=== PATIENT | male | born 1990 | race Caucasian/White ===

== ENCOUNTER 2019-01-29 13:04 | Outpatient (CLI) | payer SELFPAY ==
--- NOTE | 2019-01-29 17:18 | Diagnostic Imaging Report ---
PATIENT MR#: [id number] PATIENT PATIENT NAME: KALPANA ALONZO DATE OF : 1990 REFERRING PHYSICIAN: Fabio Sarkar EXAM DATE: 01/29/2019 ACCESSION NUMBER: [id number] EXAM DESCRIPTION: US SCROTUM CONTENTS COMPARISON: No relevant comparison is available at the time of interpretation. TECHNIQUE: Ultrasound of the bilateral testicles and scrotum was performed. Doppler color flow was pe rformed to evaluate testicular vascularity. SCROTAL ULTRASOUND: Right testicle: 3.7 x 2.2 x 5.6 cm. Normal vascular flow. Scattered microlithiasis noted. Scant hydro tye. No varicocele. Epididymis normal at 1.3 cm. Left testicle: 3.6 x 2.2 x 3.0 cm. Normal vascular flow. Scattered microlithiasis noted. No hydrocel e or varicocele. Epididymis normal 1.0 cm. IMPRESSION: 1. 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 2. Scant right hydrocele. 3. No evidence of testicular torsion or mass. Read by: Dr. Vasyl Guy Transcribed by: Vasyl Guy Transcribed Date: 01/29/2019 5:14:39 PM Electronically signed by: Dr. Vasyl Guy Date signed: 01/29/2019 5:17:52 PM
== END 2019-01-29 13:14 ==
LOC: RAD 13:04
PROVIDERS: ATTEND Family Medicine
DX: N50.819 Testicular pain, unspecified (principal); R36.1 Hematospermia
CPT/HCPCS: 76870